=== PATIENT | male | born 1960 | race Caucasian/White ===

== ENCOUNTER 2022-07-18 22:14 | Emergency (ER) | payer BC ==
[~2022-07-18] VITALS: Ht 172.7 cm; Wt 76.2 kg
--- NOTE | 2022-07-18 22:41 | NUR ---
After being triaged, patient was placed back in the waiting room to wait for bed opening in the ER.
--- NOTE | 2022-07-18 23:40 | NUR ---
Dr Simms at bedside MSE in progress
[2022-07-18] MEDS ORDERED: SULF1TAB48 PO (23:56)
[2022-07-18] MEDS ORDERED: SULFAMETH/TRIMETH 800/160 MG TABLET ONE (23:57)
[2022-07-19] MEDS ORDERED: SULFAMETH/TRIMETH 800/160 MG TABLET PO ONE
[2022-07-19 00:01] VITALS: BP 120/66
--- NOTE | 2022-07-19 00:01 | NUR ---
Patient discharged to home in stable condition. Written and verbal after care instructions given. Patient verbalizes understanding of instructions. Stressed follow up or return to ER for worsening s/s. Patient is a/ox4, NAD noted, patient ambulated with steady gait.
== END 2022-07-19 00:01 | disposition home or self-care (01) ==
LOC: ER 22:14
DX: H00.025 Hordeolum internum left lower eyelid (principal)
CPT/HCPCS: A4663